=== PATIENT | male | born 1985 | race Caucasian/White ===

== ENCOUNTER 2024-03-27 10:28 | Emergency (ER) | payer BC, SELFPAY ==
--- NOTE | ~2024-03-27 | CT_ITS ---
EXAMINATION: CT ABDOMEN AND PELVIS WITH CONTRAST CLINICAL INFORMATION: Lower abdominal pain COMPARISON: None TECHNIQUE: Multidetector volumetric imaging was performed of the abdomen and pelvis following administration of 85 mL of Omnipaque 350 intravenously without adverse reaction. Sagittal and coronal reformatted images were obtained on the technologist's workstation. This CT examination was performed using dose optimization techniques as appropriate, variously including the following: *Automated exposure control *Adjustment of mA and/or kV according to patient size (this includes techniques or standardized protocols for targeted exams where dose is matched to indication/reason for exam; i.e. extremities or head) *Use of iterative reconstruction technique DLP: 654 mGy-cm FINDINGS: LUNG BASES: The visualized lung bases are unremarkable. ABDOMINAL AND PELVIC WALL: There is small fat-containing umbilical hernia and small fat containing right inguinal hernia LIVER AND BILIARY TREE: The liver is normal in size, shape, and attenuation. No suspicious liver lesions. GALLBLADDER: Unremarkable PANCREAS: Unremarkable SPLEEN: Unremarkable ADRENAL GLANDS: Unremarkable. KIDNEYS AND URETERS: Unremarkable. UPPER GASTROINTESTINAL TRACT: The stomach and duodenum are unremarkable. VASCULAR: Unremarkable. LYMPH NODES: No lymphadenopathy. FREE FLUID: No free fluid. BLADDER: Unremarkable PELVIC VISCERA: Unremarkable LOWER GASTROINTESTINAL TRACT: The small and large bowel are unremarkable. Unremarkable appendix visualized OSSEOUS STRUCTURES: Unremarkable. CT/CT abdomen pelvis w IV con IMPRESSION: Small fat-containing umbilical hernia and small fat containing right inguinal hernia. Electronically signed by: Fartun Donaldson MD 03/27/2024 03:36 PM EDT
[2024-03-27 10:40] VITALS: BP 135/86; PULSE 106; RESP 20; TEMP 37.1; O2SAT 98; BMI 32.9
[2024-03-27 10:57] LABS: MANUAL DIFF FLAG NO
[2024-03-27 11:04] LABS: Basophils Percent Auto 0.3 % (0-2); Eosinophils Percent Auto 0.4 % (0-4); Hematocrit 47.8 % (42.0-52.0); Hemoglobin 17.8 g/dl (14.0-18.0); Imm Gran Abs Auto 0.04 X10*3/uL (0.00-0.03); Imm Gran Pct Auto 0.4 % (0.0-0.4); Lymphocytes Absolute Auto 2.4 X10*3/uL (1.2-4.9); Lymphocytes Percent Auto 22.4 % (20-40); Mean Corpuscular HGB Conc 37.2 g/dl (31.0-36.0); Mean Corpuscular Volume 85.8 fL (80.0-98.0); Mean Platelet Volume 9.2 fL (9.4-12.4); Monocytes Absolute Auto 1.1 X10*3/uL (0.1-1.2); Neutrophils Absolute Auto 7.1 x10*3/uL (2.0-8.3); Neutrophils Percent Auto 66.5 % (45-73); Platelet Count 302 X10*3/uL (160-400); Red Blood Count 5.57 X10*6/uL (4.60-5.80); Red Cell Distribution Width 11.4 % (11.0-16.0); White Blood Count 10.6 X10*3/uL (4.8-10.8)
--- NOTE | 2024-03-27 11:06 | ED_ITS ---
HPI - General Adult General Chief complaint: Abdominal Pain Stated complaint: abd pain Time Seen by Provider: 03/27/24 11:06 Source: patient Mode of arrival: ambulatory Limitations: no limitations History of Present Illness ED Provider: Jevon GIRALDO HPI narrative: 38-year-old male presents with nausea, vomiting, diarrhea, decreased p.o. intake, abdominal pain particularly the lower abdomen ongoing since Sunday. Pain worsened by eating and drinking. Reports recent sick contact which is his son, sick with similar symptoms last week, he is now better. Denies headache, vision changes, dizziness, blood in stool or vomit, cp, sob, cough, sore throat. Related Data Previous Rx's ?Medication ?Instructions ?Recorded ketorolac 10 mg tablet 10 mg PO TID PRN pain 5 days #15 03/27/24 tabs loperamide 2 mg capsule 2 mg PO Q6H PRN loose stool #20 03/27/24 caps ondansetron 4 mg disintegrating 4 mg PO Q6H PRN nausea and 03/27/24 tablet vomiting #14 tabs Allergies Allergy/AdvReac Type Severity Reaction Status Date / Time No Known Allergies Allergy Verified 03/27/24 10:43 Review of Systems 2 Review of Systems: Yes all other systems are reviewed and are negative PMFSH Past Medical History Attestation statement: The following information was validated with the patient. Source: old records reviewed and nursing notes reviewed Social History Social History Smoked in Last 30 Days: No Use of substances other than those prescribed or required for medical reasons: No Advance Directives: No Advance Directives Information Provided: No Physical Exam ED Vital Signs: Vital Signs - 24 hr 03/27/24 10:40 03/27/24 12:00 03/27/24 14:15 Temperature 98.7 F 97.6 F 98.2 F Pulse Rate 106 H 62 94 Respiratory Rate 20 16 18 Blood Pressure 135/86 169/99 H 143/97 H Pulse Oximetry 98 95 98 Oxygen Delivery Method Room Air Room Air Room Air BMI result Body Mass Index 32.9 vss Appearance: Alert.? Oriented X3.? No acute distress.? Head: Normocephalic, atraumatic, no step-offs or deformities Eyes: Pupils equal, round and reactive to light.? CVS: Normal heart rate and rhythm.? Pulses normal.? Respiratory: No respiratory distress.? Breath sounds normal.? Abdomen: Soft and nontender.? Skin: Skin warm and dry.? Normal skin color.? Normal skin turgor.? Extremities: No lower extremity edema.? No calf ttp. 5/5 strength to bilateral upper and lower extremities Back: No midline tenderness, no C-spine tenderness, full range of motion, no CVA tenderness bilaterally Neuro: Oriented X 3.? No motor deficit.? No sensory deficit. CN 2-12 intact Course Reevaluation(s) Reevaluation #1: CBC unremarkable. Chemistry no acute findings eating intervention. Total bili just mildly elevated this could be secondary to viral illness. UA unremarkable. Influenza, COVID and RSV negative. CT abdomen pelvis pending. Time: 13:45 Reevaluation #2: Patient feeling better after Toradol. CT abdomen and pelvis with small fat containing umbilical hernia and small fat containing right inguinal hernia. At this time patient to be discharged home with loperamide, Zofran and Toradol . Educated patient on diagnosis and treatment plan, answered all question, patient verbalizes understanding. At this time patient will be discharged home, advised to return with new or worsening symptoms. Educated on worrisome signs and symptoms and when to return. At this time I feel comfortable discharge home. Time: 15:42 Medications Administered Discontinued Medications Generic Name Dose Route Start Last Admin Trade Name Prosperq PRN Reason Stop Dose Admin Sodium Chloride 1,000 mls @ 999 mls/hr 03/27/24 11:15 03/27/24 13:20 Ns IV 03/27/24 12:15 Infused .Q1H1M DAHLIA Infusion Iohexol 100 ml 03/27/24 13:10 03/27/24 13:10 Iohexol 350 Mg/Ml 100 Ml Infus..Btl IV 03/27/24 13:11 85 ml ONCE ONE Administration Ketorolac Tromethamine 15 mg 03/27/24 12:30 03/27/24 13:19 Ketorolac Tromethamine 15 Mg/Ml Vial IVPUSH 03/27/24 12:31 15 mg ONCE ONE Administration Medical Decision Making Medical Decision Making MDM Narrative: 38 year old male presents w/ n/v/d, abd pain since sunday PE benign hx and pe concerning for illness versus gastroenteritis versus gastritis. Unlikely acute abdomen, appendicitis, diverticulitis, cholecystitis, pancreatitis, dissection. Will rule out metabolic derangements due to poor p.o. intake. Plan labs, UA, viral test Differential Diagnosis Differential Diagnoses: The differential diagnosis associated with the presentation includes hx and pe concerning for illness versus gastroenteritis versus gastritis. Unlikely acute abdomen, appendicitis, diverticulitis, cholecystitis, pancreatitis, dissection. Will rule out metabolic derangements due to poor p.o. intake. Admission/Observation Consideration of admission/observation: Escalation of care including admission/observation considered Lab Data MDM Lab Attestation statement: I reviewed the patient's lab results. 03/27/24 10:54 03/27/24 10:54 Labs: Lab Results 03/27/24 03/27/24 03/27/24 Range/Units 10:54 11:19 13:21 WBC 10.6 (4.8-10.8) X10*3/uL RBC 5.57 (4.60-5.80) X10*6/uL Hgb 17.8 (14.0-18.0) g/dl Hct 47.8 (42.0-52.0) % MCV 85.8 (80.0-98.0) fL MCH 32.0 (27.0-33.0) pg MCHC 37.2 H (31.0-36.0) g/dl RDW 11.4 (11.0-16.0) % Plt Count 302 (160-400) X10*3/uL MPV 9.2 L (9.4-12.4) fL Immature Gran % (Auto) 0.4 (0.0-0.4) % Neut % (Auto) 66.5 (45-73) % Lymph % (Auto) 22.4 (20-40) % Edmunds % (Auto) 10.0 (2-11) % Eos % (Auto) 0.4 (0-4) % Baso % (Auto) 0.3 (0-2) % Lymph # (Auto) 2.4 (1.2-4.9) X10*3/uL [place]ds # (Auto) 1.1 (0.1-1.2) X10*3/uL Eos # (Auto) 0.0 (0.0-0.4) X10*3/uL Baso # (Auto) 0.0 (0.0-0.2) X10*3/uL Abs Immat Gran (auto) 0.04 H (0.00-0.03) X10*3/uL Absolute Neuts (auto) 7.1 (2.0-8.3) x10*3/uL Absolute Nucleated RBC 0.000 (0.0-0.012) X10*3/uL Nucleated RBC % (auto) 0.0 (0.0-0.2) /100WBC Sodium 135 (135-145) mmol/L Potassium 4.2 (3.3-5.1) mmol/L Chloride 101 (96-108) mmol/L Carbon Dioxide 24 (22-29) mmol/L Anion Gap 14 (12-20) BUN 14 (9-16) mg/dL Creatinine 1.17 (0.5-1.4) mg/dL Estim Creat Clear Calc 111.7 Estimated GFR > 60 Random Glucose 120 H (60-115) mg/dL Calcium 10.3 H (8.4-10.2) mg/dL Magnesium 1.9 (1.6-2.6) mg/dL Total Bilirubin 1.1 H (0.0-1.0) mg/dL AST 16 (5-37) U/L ALT 17 (0-40) U/L Alkaline Phosphatase 69 (39-117) U/L Total Creatine Kinase 106 (38-174) U/L Total Protein 8.3 H (6.5-8.0) g/dL Albumin 4.9 (3.5-5.0) g/dL Lipase 23 (8-78) U/L Urine Color Yellow Urine Appearance Clear Urine pH 6.0 (5.0-9.0) Ur Specific [place] >= 1.030 H (1.005-1.025) Urine Protein 30 (1+) H (Neg-Trace) mg/dL Urine Glucose (UA) Negative (Negative) mg/dL Urine Ketones 40 (Negative) mg/dL Urine Blood Negative (Negative) Urine Nitrite Negative (Negative) Ur Leukocyte Esterase Negative (Negative) Urine RBC 0-2 (0-2) /HPF Urine WBC 0-5 (0-5) /HPF Ur Squamous Epith Cells 0-2 (0-2) /HPF Urine Bacteria None Seen (None Seen) Hyaline Casts 0-2 (0-2) /LPF Influenza Type A (PCR) NEGATIVE (Negative) Influenza Type B (PCR) NEGATIVE (Negative) RSV RNA Qual (PCR) NEGATIVE (Negative) SARS-CoV-2 RNA (RT-PCR) NEGATIVE (Negative) Chronic Conditions Denies Critical Care Time Critical Care Time Critical Care Time: No Discharge Plan Discharge Clinical Impression: Abdominal pain, Nausea & vomiting, Diarrhea, Viral illness Patient Disposition: Home, Self-Care Instructions: Abdominal Pain (ED) Additional Instructions: Take your medications as prescribed. If you were prescribed antibiotics today, it is important that you take your medication to their entirety, do not skip any doses, do not finish them early. Follow-up with your primary care provider this week. Return to the emergency department with new or worsening symptoms. Such as fevers, chills, chest pain, shortness of breath, nausea, vomiting, dizziness, headache, vision changes, lethargy In case of emergency call 911 CT/CT abdomen pelvis w IV con IMPRESSION: Small fat-containing umbilical hernia and small fat containing right inguinal hernia. Prescriptions: New loperamide 2 mg capsule 2 mg PO Q6H PRN (Reason: loose stool) Qty: 20 0RF ketorolac 10 mg tablet 10 mg PO TID PRN (Reason: pain) 5 Days Qty: 15 0RF ondansetron 4 mg tablet,disintegrating 4 mg PO Q6H PRN (Reason: nausea and vomiting) Qty: 14 0RF Referrals: Physician,Unknown J [Primary Care Provider] - 2 days Stand Alone Forms: Work/School Release Print Language: Pakistani
[2024-03-27 11:26] LABS: Anion Gap 14 (12-20)
[2024-03-27 11:27] LABS: Alanine Aminotransferase 17 U/L (0-40); Albumin Level 4.9 g/dL (3.5-5.0); Alkaline Phosphatase 69 U/L (39-117); Aspartate Amino Transferase 16 U/L (5-37); Bilirubin Total 1.1 mg/dL (0.0-1.0); Blood Urea Nitrogen 14 mg/dL (9-16); Calcium 10.3 mg/dL (8.4-10.2); Carbon Dioxide 24 mmol/L (22-29); Chloride 101 mmol/L (96-108); Creatinine Clr Calc Pharmacy 111.7; Estimated Glomerular Filt Rate > 60; Glucose Random 120 mg/dL (60-115); Lipase 23 U/L (8-78); Magnesium 1.9 mg/dL (1.6-2.6); Potassium 4.2 mmol/L (3.3-5.1); Sodium 135 mmol/L (135-145); Total Protein 8.3 g/dL (6.5-8.0)
[2024-03-27 12:00] VITALS: BP 169/99; PULSE 62; RESP 16; TEMP 36.4; O2SAT 95
[2024-03-27] MEDS: 0.9 % Sodium Chloride 1,000 ML 999 ML IV ×2 (12:03→15:43)
[2024-03-27 12:06] LABS: Influenza A PCR NEGATIVE (Negative); Influenza B PCR NEGATIVE (Negative); Resp Syncy Virus RNA Qual PCR NEGATIVE (Negative); SARS COV2 PCR INHOUSE NEGATIVE (Negative)
[2024-03-27] MEDS: iohexoL 350 MG/ML 100 ML INFUS..BTL IV (13:10)
[2024-03-27] MEDS: Ketorolac Tromethamine 15 MG/ML VIAL IVPUSH (13:19)
[2024-03-27 13:27] LABS: Appearance Urine Clear; Color Urine Yellow; Glucose Urine UA Negative (Negative); Leukocyte Esterase Urine Negative (Negative); Nitrite Urine Negative (Negative); Specific Gravity - Urine >= 1.030 (1.005-1.025); UMIC TRIGGER UACC YES; Urine Blood Negative (Negative); Urine Ketones 40 mg/dL (Negative); Urine Protein 30 (1+) mg/dL (Neg-Trace)
[2024-03-27 13:44] LABS: Bacteria Urine None Seen (None Seen); Hyaline Casts Urine 0-2 /LPF (0-2); Squamous Epithelial Cell Urine 0-2 /HPF (0-2); WBC Urine 0-5 /HPF (0-5)
[2024-03-27 13:46] LABS: RBC Urine 0-2 /HPF (0-2)
[2024-03-27 14:15] VITALS: BP 143/97; PULSE 94; RESP 18; TEMP 36.8; O2SAT 98
[2024-03-27 16:32] VITALS: BP 143/97; PULSE 94; RESP 18; TEMP 36.8; O2SAT 98
== END 2024-03-27 16:33 | disposition home or self-care (01) ==
PROVIDERS: Physician Assistant; Emergency Provider Emergency Medicine
DX: R10.9 Unspecified abdominal pain (principal); B34.9 Viral infection, unspecified; R11.2 Nausea with vomiting, unspecified; R19.7 Diarrhea, unspecified; Z03.818 Encounter for observation for suspected exposure to other biological agents ruled out
CPT/HCPCS: 0241U; 36415; 74177; 80053; 81001; 82550; 83690; 83735; 85025; 96361; 96374; 99284; 99285; J1885; Q9967